=== PATIENT | male | born 1955 | race Caucasian/White ===

== ENCOUNTER 2022-03-22 08:39 | Emergency (ER) | payer MEDICARE, OTHER ==
[~2022-03-22] VITALS: Ht 185.4 cm; Wt 113.6 kg
[2022-03-22] MEDS ORDERED: ALBUTEROL SULFATE 2.5 MG/0.5 ML NEB SOLUTION NEB ONE (08:45)
[2022-03-22] MEDS ORDERED: IPRATROPIUM BROMIDE 0.5 MG/2.5 ML NEB SOLUTION NEB ONE (08:45)
[2022-03-22] MEDS ORDERED: ACETAMINOPHEN 500 MG TABLET PO ONE (08:45)
[2022-03-22 09:08] LABS: COVID AG,FIA SOURCE NASOPHARYNGEAL
[2022-03-22 09:11] LABS: BASOPHILS % (AUTO) 0.5 % (0.0-2.0); EOSINOPHILS % (AUTO) 3.8 % (1.0-6.0); HEMATOCRIT 46.4 % (41-53); LYMPHOCYTES # (AUTO) 1.5 K/uL (1.0-4.8); LYMPHOCYTES % (AUTO) 17.9 % (22.0-44.0); MEAN CORPUSCULAR HEMOGLOBIN 29.9 pg (26.0-34.0); MEAN CORPUSCULAR HGB CONC 32.4 G/dL (31.0-37.0); MEAN CORPUSCULAR VOLUME 92 fL (80-100); MONOCYTES # (AUTO) 0.9 K/uL (0.1-1.0); MONOCYTES % (AUTO) 10.4 % (2.0-9.0); NEUTROPHILS # (AUTO) 5.7 K/uL (1.8-7.7); NEUTROPHILS % (AUTO) 67.4 % (40.0-70.0); PLATELET COUNT (AUTO) 242 K/uL (150-450); RED BLOOD CELL COUNT(AUTO) 5.03 MIL/uL (4.50-5.90); RED CELL DISTRIBUTION WIDTH 14.2 % (11.5-14.5)
[2022-03-22 09:21] LABS: ANION GAP 1 mmol/L (8-16); CARBON DIOXIDE 30 mmol/L (22-29); CHLORIDE 103 mmol/L (98-107); CREATININE 1.07 mg/dL (0.60-1.30); GLOMERULAR FILTR. RATE CALC > 60 mL/min (>60); GLUCOSE,RANDOM 98 mg/dL (70-110); POTASSIUM 4.4 mmol/L (3.5-5.1); SODIUM SERUM 134 mmol/L (136-145); UREA NITROGEN, BLOOD 10 mg/dL (7-18)
[2022-03-22 09:46] LABS: ALANINE AMINOTRANSFERASE 15 U/L (12-78); ALBUMIN 2.8 g/dL (3.4-5.0); ALKALINE PHOSPHATASE 118 U/L (46-116); ASPARTATE AMINOTRANSFERASE 15 U/L (15-37); BILIRUBIN,TOTAL 1.1 mg/dL (0.1-1.0); CREATINE KINASE, TOTAL ONLY 183 U/L (39-308); INFLUENZA TYPE A NEGATIVE FOR TYPE A (NEGATIVE); INFLUENZA TYPE B NEGATIVE FOR TYPE B (NEGATIVE); TOTAL PROTEIN, SERUM 7.8 g/dL (6.4-8.2)
[2022-03-22 09:52] LABS: B-TYPE NATRIURETIC PEPTIDE 47 pg/mL (0-100)
[2022-03-22] MEDS ORDERED: IOHEXOL 350 MG/ML 100 ML VIAL ONE (10:25)
[2022-03-22] MEDS ORDERED: SODIUM CHLORIDE 0.9% 100 ML ONE (10:25)
[2022-03-22 10:57] VITALS: BP 145/81
[2022-03-22] MEDS ORDERED: KETOROLAC TROMETHAMINE 30 MG/ML VIAL IVP ONE (11:15)
[2022-03-22] MEDS ORDERED: AZIT-84 PO (11:21)
[2022-03-22] MEDS ORDERED: AZITHROMYCIN 500 MG TABLET PO ONE (11:30)
== END 2022-03-22 12:01 | disposition home or self-care (01) ==
LOC: EMS 08:41
DX: R07.89 Other chest pain (principal); J18.9 Pneumonia, unspecified organism; J45.909 Unspecified asthma, uncomplicated; E11.9 Type 2 diabetes mellitus without complications; I10 Essential (primary) hypertension; Z20.822 Contact with and (suspected) exposure to COVID-19
CPT/HCPCS: 99285; 96374; 71275; 71045; 87426; 80053; 82550; 83880; 84484; 85025; 85379; 87804; 94640; 93005; J1885; Q9967; J7050; J7613